=== PATIENT | male | born 1940 | race Caucasian/White ===

== ENCOUNTER 2023-02-03 12:14 | Day surgery (SDC) | payer OTHER, SELFPAY ==
[2023-02-03] VITALS (7 sets, daily range): BP systolic 76–178; BP diastolic 44–77; PULSE 60–76; RESP 12–20; TEMP 36.2–36.8; O2SAT 95–100; BMI 27.5
--- NOTE | 2023-02-03 | PATH_ITS ---
[facility] Accession Number: [id number] No. of containers..01 Tissue . 01 Material submitted: . cecum - CECAL POLYPS . 01 Diagnosis: Cecal Polyps, Biopsy: Tubular adenomas. MRV 02/15/2023 2257 Local . 01 Electronically signed: . Lexi Connor MD, Pathologist NPI- [id number] . 01 Gross description: . CECAL POLYPS: Received in formalin is 2 fragment(s) of alva, soft tissue measuring 0.3 x 0.3 x 0.2 cm to 0.2 x 0.2 x 0.1 cm submitted entirely in 1 cassette(s) /AAY 02/09/2023 1207 Local . 01 Pathologist provided ICD-10: D12.0 . 01 CPT . 215470 Specimen Comment: A courtesy copy of this report has been sent to [phone] Performed at: 01 [facility] [address] [place] [address], [place], [place] [id number] MD Jonathan Lawrence MD Phone: [phone]
--- NOTE | 2023-02-03 12:11 | PM.PREOP ---
Pre-operative Note COVID-19 COVID-19 status: Negative Interval Note History & Physical reviewed/Exam performed by Physician: Yes Changes to H&P: No ASA Class (for procedural sedation): II
--- NOTE | 2023-02-03 12:11 | PM.OP.COLON ---
Operative Date/Time/Diagnoses Date of procedure: 02/03/23 Pre-op diagnosis: See indication and findings Procedure & Clinicians Study performed: Colonoscopy Indications: Colorectal cancer screening and loose stools Surgeon: Salvador Lawrence Procedure Notes Procedure in detail: After informed consent was obtained the patient was placed in left lateral decubitus position. The video colonoscope was introduced the rectum and slowly advanced to the cecum. Preparation was good. On slow withdrawal mucosa was carefully examined. The scope was removed. The patient tolerated procedure well. Blood loss none Complications none Sedation mac Findings 1. Mild degree of anal stenosis 2. Moderate to severe internal hemorrhoids 3. Severe left-sided diverticulosis 4. Completely normal mucosa in general with resolved loose stools. No biopsies taken 5. Large area of nodularity just next to the IC valve (see photos) approximately 2 cm x 2 cm. It appeared to be somewhat nodular and adenomatous but not clearly malignant. Biopsies taken to rule out adenoma. Will be in touch with Mr. Davidson regarding his biopsies I think that the lesion is cecum is in a very difficult position. It would be difficult to get an en face view and it covers a large area. We will await biopsies but I have the feeling that he is going to need to have this resected at surgery.
[2023-02-03] MEDS: LACTATED RINGERS 1,000 ML 42 ML IV (12:52)
== END 2023-02-03 14:30 | disposition home or self-care (01) ==
PROVIDERS: PCP Family Medicine; Referring Provider Internal Medicine Gastroenterology; Visit Provider Internal Medicine Gastroenterology
PROC: 0DJD8ZZ Inspection of Lower Intestinal Tract, Via Natural or Artificial Opening Endoscopic (ICD-10-PCS; CPT 45378; principal; 2023-02-03 13:30)
DX: Z12.11 Encounter for screening for malignant neoplasm of colon (principal); Z86.010 Personal history of colon polyps; E11.9 Type 2 diabetes mellitus without complications; I10 Essential (primary) hypertension; I12.9 Hypertensive chronic kidney disease with stage 1 through stage 4 chronic kidney disease, or unspecified chronic kidney disease; E11.22 Type 2 diabetes mellitus with diabetic chronic kidney disease; N18.9 Chronic kidney disease, unspecified; Z79.4 Long term (current) use of insulin; K62.4 Stenosis of anus and rectum; K64.8 Other hemorrhoids; K57.30 Diverticulosis of large intestine without perforation or abscess without bleeding; D12.0 Benign neoplasm of cecum
CPT/HCPCS: 45380; J2704

== ENCOUNTER → 2024-05-09 16:04 | Outpatient (CLI) | payer OTHER, SELFPAY ==
[2024-05-09 18:03] LABS: Prostate Specific Antigen 1.24 ng/mL (0.10-4.00)
== END ==
PROVIDERS: PCP Family Medicine; Referring Provider Urology; Visit Provider Urology
DX: R97.20 Elevated prostate specific antigen [PSA] (principal)
CPT/HCPCS: 36415; 84153

== ENCOUNTER → 2024-06-26 13:05 | Outpatient (CLI) | payer OTHER, SELFPAY | PROVIDERS: PCP Family Medicine; Visit Provider Urology | DX: N40.1 Benign prostatic hyperplasia with lower urinary tract symptoms (principal); N13.8 Other obstructive and reflux uropathy; R33.9 Retention of urine, unspecified | CPT/HCPCS: 81002; 87077; 87086; 87186 ==

== ENCOUNTER → 2024-07-14 10:30 | Outpatient (CLI) | payer OTHER, SELFPAY | PROVIDERS: PCP Family Medicine; Referring Provider Urology; Visit Provider Urology | DX: N40.1 Benign prostatic hyperplasia with lower urinary tract symptoms (principal); N13.8 Other obstructive and reflux uropathy; R33.9 Retention of urine, unspecified | CPT/HCPCS: 87077; 87086; 87186 ==

== ENCOUNTER 2024-08-15 05:54 | Day surgery (SDC) | payer OTHER, SELFPAY ==
[2024-08-09 08:51] VITALS: BMI 28.5
--- NOTE | 2024-08-15 | PATH_ITS ---
[facility] Accession Number: [id number] No. of containers..01 Tissue . 01 Material submitted: . foreskin - FORESKIN . 01 Diagnosis: FORESKIN, EXCISION: Foreskin with focal lichenoid chronic inflammation. MRV 08/18/2024 1441 Local . 01 Comment: PAS fungal stains performed on blocks A1 and A2 are negative for fungal hyphae. . 01 Electronically signed: . Sedrick Ruelas MD, Dermatopathologist NPI- [id number] . 01 Gross description: . Received in formalin with two patient identifiers and foreskin, is a alva, wrinkled fragment of skin measuring 6.8 x 3.3 x 1.4 cm. Inked blue and sectioned to reveal a alva and slightly hemorrhagic soft cut surface. Central Office Frame Wirer sections submitted in A1-A2. ([id number]) . Additional sections are submitted in A3-A5. ([id number]) /MRV 08/17/20242024 Local . 01 Pathologist provided ICD-10: L30.9 . 01 CPT . 505204, 724025 Performed at: [address] [id number] MD Jonathan Lawrence MD Phone: [phone]
[2024-08-15 06:40] VITALS: BMI 27.8
[2024-08-15 06:46] VITALS: BP 164/67; PULSE 75; RESP 16; TEMP 37.1; O2SAT 100
[2024-08-15] MEDS: LACTATED RINGERS 1,000 ML 21 ML IV (07:02)
[2024-08-15] MEDS: ALBUTEROL 2.5 MG/3 ML NEB (ADULT) INH (07:24)
--- NOTE | 2024-08-15 07:36 | PM.PREOP ---
Pre-operative Note COVID-19 COVID-19 status: Not tested Interval Note History & Physical reviewed/Exam performed by Physician: Yes Changes to H&P: No
[2024-08-15] MEDS: CIPROFLOXACIN 400 MG/200 ML PIGGYBACK 200 MG IV (07:55)
--- NOTE | 2024-08-15 08:05 | SUR.OPER ---
Supine on padded OR bed, head on pillow, arms padded and tucked at sides, legs uncrossed, safety belt at thigh, tape over blanket over lower legs .
[2024-08-15] MEDS: BACITRACIN 28 GM OINT 1 APPLIC TOP (08:54)
[2024-08-15] MEDS: BUPIVACAINE 0.25% (PF) VIAL 30 ML INJ (08:57)
[2024-08-15 09:16] VITALS: BP 128/56; PULSE 80; RESP 15; TEMP 36.3; O2SAT 95
[2024-08-15 09:21] VITALS: BP 126/61; PULSE 77; RESP 15; O2SAT 95
--- NOTE | 2024-08-15 09:23 | PM.OP.1 ---
Procedure & Clinicians Procedure: Circumcision Same procedure as scheduled: Yes Indications: This 84-year-old male presented with phimosis and fairly significant balanitis. The balanitis has been sufficiently treated to allow circumcision to take place in the patient presents at this time for circumcision. Surgeon: Pierre Hernandez Click Yes if Unassisted: Yes Anesthesia Type: General Operative Notes Findings: Uncircumcised penis, phimosis, few subcoronal adhesions, normal meatus, normal penis, no other abnormality. Patient's balanitis has been treated. Closure Type: primary Specimen(s): other (Foreskin) Prosthetic devices, grafts, tissues, transplants, or devices: None Estimated Blood Loss (mL): 5 Blood products transfused: none Procedure in detail: Procedure in detail: After informed consent was obtained, the patient was identified and brought to the operating room where he was placed in a supine position on the table. Once there anesthesia was induced and maintained. Showing an adequate level of anesthesia the patient was shaved, prepped, draped for circumcision. After ensuring an adequate level of anesthesia, time-out, administration of antibiotics and prepping and draping circumcision was performed. Lines of incision in the subcoronal sulcus and on the penile shaft skin were drawn. These were incised circumferentially. Points of bleeding controlled with the electrocautery. And the sleeve of intervening skin was removed with blunt sharp and electrocautery dissection. With the sleeve of skin removed points of bleeding were controlled with the electrocautery. The skin was then reapproximated with interrupted 2-0 chromic gut suture. The incision was then infiltrated with 0.25% plain Marcaine bacitracin Xeroform gauze and dressing were applied. The patient was then catheterized to empty his bladder. (patient empties his bladder by catheterization) with the bladder drained the patient was awakened taken to the postanesthesia care unit having tolerated the procedure well. There were no complications. Complications: none Post-operative Condition: stable Disposition: PACU Plan for aftercare: Patient to follow-up in my office in 10-14 days.
[2024-08-15 09:26] VITALS: BP 129/59; PULSE 85; RESP 12; O2SAT 96
[2024-08-15 09:30] VITALS: BP 124/57; PULSE 77; RESP 14; TEMP 36.3; O2SAT 95
== END 2024-08-15 09:57 | disposition home or self-care (01) ==
PROVIDERS: PCP Family Medicine; Referring Provider Urology; Visit Provider Urology
PROC: (CPT 54161; principal; 2024-08-15 07:45)
DX: N47.1 Phimosis (principal); N48.1 Balanitis; N47.5 Adhesions of prepuce and glans penis; N40.1 Benign prostatic hyperplasia with lower urinary tract symptoms; R33.8 Other retention of urine; Z87.891 Personal history of nicotine dependence; Z77.22 Contact with and (suspected) exposure to environmental tobacco smoke (acute) (chronic)
CPT/HCPCS: 54161; 82962; J0744; J2405; J2704; J3010; J7613

== ENCOUNTER → 2024-08-25 10:01 | Outpatient (CLI) | payer OTHER, SELFPAY | PROVIDERS: PCP Family Medicine; Visit Provider Urology | DX: N40.1 Benign prostatic hyperplasia with lower urinary tract symptoms (principal); N13.8 Other obstructive and reflux uropathy; R33.9 Retention of urine, unspecified | CPT/HCPCS: 87077; 87086; 87186 ==

== ENCOUNTER → 2024-11-09 11:53 | Outpatient (CLI) | payer OTHER, SELFPAY | PROVIDERS: PCP Family Medicine; Visit Provider Urology | DX: Z87.440 Personal history of urinary (tract) infections (principal) | CPT/HCPCS: 87077; 87086; 87186 ==

== ENCOUNTER → 2025-01-25 11:50 | Outpatient (CLI) | payer OTHER, SELFPAY | PROVIDERS: PCP Family Medicine; Visit Provider Urology | DX: R33.9 Retention of urine, unspecified (principal); Z87.440 Personal history of urinary (tract) infections; N40.1 Benign prostatic hyperplasia with lower urinary tract symptoms; N13.8 Other obstructive and reflux uropathy; Z68.27 Body mass index [BMI] 27.0-27.9, adult | CPT/HCPCS: 51798; 52000; 76872; 81002; 87077; 87086; 87186; 99213 ==